=== PATIENT | male | born 1950 | race Caucasian/White ===

== ENCOUNTER 2023-12-09 13:44 | Outpatient (CLI) | payer MEDICARE, BC | END 2023-12-09 13:45 | disposition home or self-care (01) | LOC: CSHWCC 13:44 | PROVIDERS: ATTEND Nurse Practitioner Family | DX: I87.312 Chronic venous hypertension (idiopathic) with ulcer of left lower extremity (principal); E11.622 Type 2 diabetes mellitus with other skin ulcer; L97.222 Non-pressure chronic ulcer of left calf with fat layer exposed; E66.01 Morbid (severe) obesity due to excess calories | CPT/HCPCS: 99213; G0463 ==

== ENCOUNTER 2023-12-12 11:28 | Outpatient (CLI) | payer MEDICARE, BC | END 2023-12-12 11:29 | disposition home or self-care (01) | LOC: CSHWCC 11:28 | PROVIDERS: ATTEND Nurse Practitioner Family | DX: I87.312 Chronic venous hypertension (idiopathic) with ulcer of left lower extremity (principal); E11.622 Type 2 diabetes mellitus with other skin ulcer; L97.222 Non-pressure chronic ulcer of left calf with fat layer exposed; E66.01 Morbid (severe) obesity due to excess calories | CPT/HCPCS: 29581 ==

== ENCOUNTER 2023-12-16 15:25 | Outpatient (CLI) | payer MEDICARE, BC | END 2023-12-16 15:26 | disposition home or self-care (01) | LOC: CSHWCC 15:25 | PROVIDERS: ATTEND Nurse Practitioner Family | DX: I87.312 Chronic venous hypertension (idiopathic) with ulcer of left lower extremity (principal); E11.622 Type 2 diabetes mellitus with other skin ulcer; L97.222 Non-pressure chronic ulcer of left calf with fat layer exposed; E66.01 Morbid (severe) obesity due to excess calories | CPT/HCPCS: 11042; G0463; 99213 ==

== ENCOUNTER 2023-12-19 11:59 | Outpatient (CLI) | payer MEDICARE, BC | END 2023-12-19 12:00 | disposition home or self-care (01) | LOC: CSHWCC 11:59 | PROVIDERS: ATTEND Nurse Practitioner Family | DX: E11.622 Type 2 diabetes mellitus with other skin ulcer (principal); L97.222 Non-pressure chronic ulcer of left calf with fat layer exposed; I87.312 Chronic venous hypertension (idiopathic) with ulcer of left lower extremity; E66.01 Morbid (severe) obesity due to excess calories | CPT/HCPCS: 99213; G0463 ==

== ENCOUNTER 2023-12-23 16:21 | Outpatient (CLI) | payer MEDICARE, BC | END 2023-12-23 16:22 | disposition home or self-care (01) | LOC: CSHWCC 16:21 | PROVIDERS: ATTEND Nurse Practitioner Family | DX: I87.312 Chronic venous hypertension (idiopathic) with ulcer of left lower extremity (principal); E11.622 Type 2 diabetes mellitus with other skin ulcer; L97.929 Non-pressure chronic ulcer of unspecified part of left lower leg with unspecified severity; E66.01 Morbid (severe) obesity due to excess calories | CPT/HCPCS: 99213; G0463 ==

== ENCOUNTER 2024-01-06 | Outpatient (CLI) | payer MEDICARE, BC | END 2024-01-06 13:39 | disposition home or self-care (01) | DX: I87.312 Chronic venous hypertension (idiopathic) with ulcer of left lower extremity (principal); E11.622 Type 2 diabetes mellitus with other skin ulcer; L97.929 Non-pressure chronic ulcer of unspecified part of left lower leg with unspecified severity; E66.01 Morbid (severe) obesity due to excess calories ==